=== PATIENT | male | born 1945 | race Caucasian/White ===

== ENCOUNTER → 2023-12-06 12:30 | Outpatient (REF) | payer OTHER, SELFPAY | LOC: RAD 12:30 | PROVIDERS: ATTENDING PHYSICIAN Internal Medicine | DX: R55 Syncope and collapse (principal) | CPT/HCPCS: 93880 ==

== ENCOUNTER → 2024-01-29 07:44 | Outpatient (REF) | payer OTHER, SELFPAY | LOC: RCS 07:44 | PROVIDERS: ATTENDING PHYSICIAN Internal Medicine Cardiovascular Disease; FAMILY PHYSICIAN Internal Medicine | DX: I25.10 Atherosclerotic heart disease of native coronary artery without angina pectoris (principal); I35.0 Nonrheumatic aortic (valve) stenosis | CPT/HCPCS: 93306 ==

== ENCOUNTER → 2024-05-27 06:37 | Outpatient (REF) | payer OTHER, SELFPAY | LOC: RAD 06:37 | PROVIDERS: ATTENDING PHYSICIAN Internal Medicine | DX: M54.50 Low back pain, unspecified (principal); M54.9 Dorsalgia, unspecified; M54.2 Cervicalgia | CPT/HCPCS: 72125; 72128; 72131 ==

== ENCOUNTER → 2024-12-11 07:43 | Outpatient (REF) | payer OTHER, SELFPAY | LOC: HWRAD 07:43 | PROVIDERS: ATTENDING PHYSICIAN Internal Medicine | DX: C64.2 Malignant neoplasm of left kidney, except renal pelvis (principal); Z90.5 Acquired absence of kidney; N18.32 Chronic kidney disease, stage 3b | CPT/HCPCS: 74176 ==

== ENCOUNTER 2025-03-10 09:10 | Outpatient (REF) | payer OTHER, SELFPAY ==
[2025-03-10 09:45] VITALS: BP 181/76; BP_SYST 62
[2025-03-10 09:48] LABS: INR 0.94; PT 13.0 Sec (11.4-14.6)
[2025-03-10 11:34] VITALS: BP 128/62; BP_SYST 62
[2025-03-10 11:55] VITALS: BP 118/92
[2025-03-10 11:57] LABS: Glucose - Point of Care 245 mg/dl (70-99)
[2025-03-10 12:55] VITALS: BP 154/76
[2025-03-10 13:55] VITALS: BP 153/84
== END 2025-03-10 14:05 | disposition home or self-care (01) ==
LOC: RAD 09:10
PROVIDERS: ATTENDING PHYSICIAN Internal Medicine
DX: Z79.01 Long term (current) use of anticoagulants (principal); M47.816 Spondylosis without myelopathy or radiculopathy, lumbar region
CPT/HCPCS: 36415; 62304; 72131; 82962; 85610